=== PATIENT | male | born 1980 | race American Indian/Alaskan Native ===

== ENCOUNTER 2017-07-26 23:23 | Emergency (ER) | payer MEDICARE ==
--- NOTE | 2017-07-27 05:59 | Emergency Department Report ---
HPI - General Chief Complaint: Psych Time Seen by Provider: 07/27/17 05:43 - HPI HPI: The patient is a 37-year-old male who presents for evaluation of mental health. The patient arrived via local PD after walking in traffic and experiencing agitation. The patient reports constant severe worrying for the past day. He submits that people need to become Christians and going to the liquor stores. The patient denies fever, headache, unexplained weight loss or weight gain, heat or cold intolerance, skin, hair, or nail changes, neuro deficits, homicidal ideations. ED Past Medical Hx - Past Medical History Previous Medical History?: No - Surgical History Past Surgical History?: No - Social History Smoking Status: Unknown if ever smoked Substance Use Type: Other ED Review of Systems ROS: Stated complaint: EVAL/1013 Other details as noted in HPI Constitutional: denies: fever ENT: denies: throat or neck pain Respiratory: denies: cough, shortness of breath Cardiovascular: denies: chest pain Endocrine: denies unexplained weight loss or gain Gastrointestinal: denies: abdominal pain, nausea Genitourinary: denies: dysuria Musculoskeletal: denies: leg swelling Skin: denies: rash Neurological: denies: headache Hematological/Lymphatic: denies: easy bleeding or easy bruising Psych: denies sadness or hopelessness Physical Exam - Physical Exam Vital Signs: Vital Signs 07/26/17 07/27/17 07/27/17 23:58 00:11 00:16 Temperature 98 F 98 F Pulse Rate 79 88 Respiratory 18 18 18 Rate Blood Pressure 112/76 Blood Pressure 112/75 [Left] O2 Sat by Pulse 100 100 100 Oximetry Physical Exam: General: well-nourished, well-developed, no acute distress Head: Normocephalic, atraumatic Eyes: normal sclera ENT: Mucous membranes are pink and moist Neck: trachea midline, neck supple, No neck stiffness, no cervical adenopathy Respiratory: Breath sounds equal bilaterally, no wheezing, rales, or rhonchi Cardio: S1 and S2 present, no murmurs, rubs, gallops, capillary refill is brisk Abdomen: Normoactive bowel sounds, soft abdomen, no rigidity, no guarding or rebound tenderness Chest WALL/Back: No tenderness to palpation of the chest wall, no CVA tenderness with percussion Musc: No pitting edema Skin: No rash Neuro: no facial drooping, normal speech Psych: Flat affect, withdrawn, poor insight, delusional ED Course Vital Signs 07/26/17 07/27/17 07/27/17 23:58 00:11 00:16 Temperature 98 F 98 F Pulse Rate 79 88 Respiratory 18 18 18 Rate Blood Pressure 112/76 Blood Pressure 112/75 [Left] O2 Sat by Pulse 100 100 100 Oximetry ED Medical Decision Making - Lab Data Result diagrams: 07/27/17 05:47 07/27/17 05:47 - Medical Decision Making The patient was seen and examined by myself. The patient is placed on a compliance monitor and continuous pulse ox. On initial evaluation, the patient was found to be in no distress. Labs are obtained. Lab results are grossly unremarkable. The patient is medically clear. Mental health is consulted. Mental health evaluates the patient and agrees that the patient is at risk of harm to self. A 1013 is completed. The patient will be admitted to a psychiatric facility once bed placement is obtained. Critical care attestation.: If time is entered above; I have spent that time in minutes in the direct care of this critically ill patient, excluding procedure time. ED Disposition Clinical Impression: Acute psychosis Disposition: DC/TX-65 PSY HOSP/PSY UNIT Is pt being admited?: No Does the pt Need Aspirin: No Condition: Fair Referrals: PRIMARY CARE [Primary Care Provider] - 3-5 Days Time of Disposition: 05:55
[2017-07-27 06:08] LABS: Hematocrit 35.7 % (35.5-45.6); Hemoglobin 11.9 gm/dl (11.8-15.2); Mean Corpuscular HGB Conc 33 % (32-34); Mean Corpuscular Hemoglobin 28 pg (28-32); Mean Corpuscular Volume 86 fl (84-94); Platelet Count 157 K/mm3 (140-440); Red Blood Count 4.17 M/mm3 (3.65-5.03); Red Cell Distribution Width 12.9 % (13.2-15.2)
[2017-07-27 06:15] LABS: BUN/Creatinine Ratio 37; Blood Urea Nitrogen 22 mg/dL (9-20); Calcium 8.7 mg/dL (8.4-10.2); Hemolysis Index 46
[2017-07-27 06:53] LABS: Large Platelets Rare; Ovalocytes 2+; Poikilocytosis 1+; Total Cells Counted 100
--- NOTE | 2017-07-27 12:46 | Consultation ---
History of Present Illness - Reason for Consult Consult date: 07/27/17 Reason for consult: Mental Health Evaluation Requesting physician: ELINOR FISH - Chief Complaint Chief complaint: "I was told to come here" - History of Present Psychiatric Illness 37-year-old male who presents for evaluation of mental health. The patient arrived via local PD after walking in traffic and experiencing agitation. Today the patient is calm, but disorganized and not lucid during the assessment. He had to be redirected several time to keep him on topic. Per the staff, the patient prefer to be nude. The patient isn't a good historian at this time. Medications and Allergies Allergies Allergy/AdvReac Type Severity Reaction Status Date / Time No Known Allergies Allergy Unverified 07/26/17 23:33 Past psychiatric history - Past Medical History Past Medical History: No medical history Past Surgical History: No surgical history - past Psychiatric treatment and history psychiatric treatment history: Multiple inpatient psy services. Denies a fam psy hx. - Social History Social history: Lives alone Mental Status Exam - Vital signs Last Vital Signs Temp 99.1 F 07/27/17 10:49 Pulse 70 07/27/17 10:49 Resp 18 07/27/17 10:49 BP 107/73 07/27/17 10:49 Pulse Ox 100 07/27/17 10:49 - Exam Narrative exam: MSE: Appearance: calm Behavior: poor eye contact Speech: regular rate and tone Mood: "okay" Affect: flat Thought Process: disorganized, tangential Thought Content: denies SI/HI's and AVH's Motor Activity: lying in bed Cognition: A/O x 3 Insight: poor Judgment: poor Results Result Diagrams: 07/27/17 05:47 07/27/17 05:47 Abnormal lab results 07/27/17 07/27/17 07/27/17 Range/Units 05:47 05:47 05:47 RDW 12.9 L (13.2-15.2) % Seg Neuts % (Manual) 38.0 L (40.0-70.0) % Lymphocytes % (Manual) 45.0 H (13.4-35.0) % Eosinophils % (Manual) 9.0 H (0.0-4.3) % BUN 22 H (9-20) mg/dL Creatinine 0.6 L (0.8-1.5) mg/dL Salicylates < 0.3 L (2.8-20.0) mg/dL Acetaminophen (10.0-30.0) ug/mL 07/27/17 Range/Units 05:47 RDW (13.2-15.2) % Seg Neuts % (Manual) (40.0-70.0) % Lymphocytes % (Manual) (13.4-35.0) % Eosinophils % (Manual) (0.0-4.3) % BUN (9-20) mg/dL Creatinine (0.8-1.5) mg/dL Salicylates (2.8-20.0) mg/dL Acetaminophen < 5.0 L (10.0-30.0) ug/mL All other labs normal. Assessment and Plan Assessment and plan: Impression: Unspecified Psychosis. Today the patient is calm, but disorganized and not lucid during the assessment. UDS is negative. DDx: R/O Bipolar DO, R/O Schizophrenia Recommendation/Plan: Continue 1013 with placement to [facility] today.
[2017-07-27 20:34] VITALS: BP 132/75
== END 2017-07-27 20:25 ==
LOC: ED 23:23
DX: F23 Brief psychotic disorder (principal); Z79.899 Other long term (current) drug therapy
CPT/HCPCS: 36415; 80048; 85007; 85025; 99285; G0480; 80320